=== PATIENT | female | born 1965 | race Caucasian/White ===

== ENCOUNTER 2017-01-08 15:19 | Emergency (ER) | payer OTHER ==
--- NOTE | ~2017-01-08 | US85 ---
[facility] RADIOLOGY TEXT RESULTS PATIENT: ARABELLA DELA CRUZ LOCATION: SED : 69 UNIT #: [id number] AGE: [address]: Joseline Gold MD SEX: F ORDER DR: [id number] [address] [address] [id number] E MR#: [id number] Acc #: [id number] NAME: ARABELLA DELA CRUZ : 1965 SEX: F STUDY DATE/TIME: 01/08/2017 16:18 UNIT: SED ROOM: STUDY DESCRIPTION: [facility] or [facility] Attending Physician: Joseline Gold M.D. Ordering Physician: Physician Non-Staff Primary Care Physician: Pia Chan M.D. MEDICAL IMAGING REPORT This report is preliminary unless electronic signature is present. EXAM Right lower extremity venous duplex 01/08/2017 HISTORY Right lower extremity pain and swelling from right buttock to right ankle with right calf swelling for 3 days. Evaluate for deep vein thrombosis. TECHNIQUE Venous ultrasound examination of the right lower extremity was performed using grayscale, spectral Doppler and color flow Doppler imaging. FINDINGS The examination is negative. There is no evidence of right lower extremity deep venous thrombus from the groin to the lower calf. Visualized greater saphenous vein is also patent. IMPRESSION Negative examination. No evidence of right lower extremity deep venous thrombosis. Dictated by... David Duval M.D. THIS IS AN ELECTRONICALLY VERIFIED REPORT David Duval M.D. at 01/09/2017 7:46 AM TOÑITO/harjeet TD: 01/08/2017 20:48 JOB #: [id number] [facility]ICAL [facility]AGING [facility] RADIOLOGY TEXT RESULTS PATIENT: ARABELLA DELA CRUZ LOCATION: SED : 69 UNIT #: [id number] AGE: [address]: Joseline Gold MD SEX: F ORDER DR: Page 1 of 1
[~2017-01-08 15:19] MED LIST: ALLEGRA PO; BENTYL10 MG DOB; CENTRUM PO; K-TAB ER20 MEQ PO; KEFLEX PO; KLONOPIN PO; LEXAPRO PO; NEXIUM PO; OMEPRAZOLE40 M1 PO; PREDNISONE PO; SEROQUEL XR150 MG PO; SUDAFED; TOPROL XL PO; VALTREX PO; VERAMYST10 GM; VICODIN 5/500 T1 TAB PO; ZOLOFT50 MG PO; ZOVIRAX400 MG PO
[2017-01-08 15:34] LABS: BASOPHIL# 0.1 X10e3 (0-0.3); BASOPHIL% 0.7 % (0-2.5); EOSINOPHIL# 0.1 X10e3 (0-0.7); EOSINOPHIL% 0.6 % (0.0-7.0); HEMATOCRIT 35.6 % (35.0-45.0); HEMOGLOBIN 12.2 gm/dL (12.0-16.0); LYMPHOCYTE# 1.6 X10e3 (1.0-3.5); LYMPHOCYTE% 17.9 % (17.0-45.0); MEAN CELL VOLUME 104.1 FL (83-96); MEAN CORPUSCULAR HEMOGLOBIN 35.6 PG (28-34); MEAN CORPUSCULAR HGB CONC 34.2 g/dL (30-36); MEAN PLATELET VOLUME 8.2 FL (6.5-11.5); MONOCYTE# 0.9 X10e3 (0-1.0); MONOCYTE% 9.7 % (3.0-12.0); NEUTROPHIL# 6.5 X10e3 (1.5-7.1); NEUTROPHIL% 71.1 % (40-75); PLATELET COUNT 344 X10e3 (140-420); RED BLOOD COUNT 3.42 X10e (3.90-5.30); RED CELL DISTRIBUTION WIDTH 15.6 % (11.0-15.5); WHITE BLOOD COUNT 9.2 X10e3 (4.0-10.5)
[2017-01-08 16:01] LABS: DIFF IND NO
[2017-01-08 16:07] LABS: INR 1.2; PROTHROMBIN TIME (PATIENT) 13.5 SECONDS (9.5-12.4)
[2017-01-08 16:11] LABS: CALCIUM SERUM 7.9 mg/dL (8.4-10.2); CARBON DIOXIDE 22 mmol/L (22-31); CHLORIDE 100 mmol/L (100-111); CREATININE SERUM 0.6 mg/dL (0.6-1.4); GLUCOSE FASTING 134 mg/dL (70-110); SODIUM 135 mmol/L (135-145)
[2017-01-08 16:15] LABS: BLOOD UREA NITROGEN <5 mg/dL (9-23); BUN/CREATININE RATIO 8.33; POTASSIUM 2.4 mmol/L (3.5-5.1)
[2017-01-08] MEDS ORDERED: ZESTRIL40 MG PO (16:16)
[2017-01-08 18:40] LABS: BLOOD UREA NITROGEN <5 mg/dL (9-23); BUN/CREATININE RATIO 7.14; CALCIUM SERUM 8.3 mg/dL (8.4-10.2); CARBON DIOXIDE 26 mmol/L (22-31); CHLORIDE 102 mmol/L (100-111); CREATININE SERUM 0.7 mg/dL (0.6-1.4); GLOM FILT RATE Estimated 101.7 mL/min (>60); GLUCOSE FASTING 97 mg/dL (70-110); SODIUM 139 mmol/L (135-145)
[2017-01-08 18:42] LABS: POTASSIUM 2.9 mmol/L (3.5-5.1)
[2017-01-17] MEDS ORDERED: CARAFATE (08:43)
[2017-01-17] MEDS ORDERED: BUTALB-ACETAMI1 EAC2 (08:43)
[2017-01-17] MEDS ORDERED: PROTONIX (08:43)
== END 2017-01-08 19:06 | disposition home or self-care (01) ==
LOC: SED 15:19
PROVIDERS: Emergency Medicine
DX: R60.0 Localized edema (principal); E87.6 Hypokalemia; I10 Essential (primary) hypertension; F41.9 Anxiety disorder, unspecified; F17.200 Nicotine dependence, unspecified, uncomplicated; Z88.2 Allergy status to sulfonamides
CPT/HCPCS: 36415; 80048; 85025; 85610; 93971; 99284

== ENCOUNTER → 2017-01-10 | Outpatient (CLI) | payer OTHER ==
[~2017-01-10] MED LIST changes: +BUTALB-ACETAMI1 EAC2; +CARAFATE; +PROTONIX; +ZESTRIL40 MG PO
[2017-01-10 09:39] LABS: CALCIUM SERUM 8.4 mg/dL (8.4-10.2); CARBON DIOXIDE 27 mmol/L (22-31); CHLORIDE 101 mmol/L (100-111); CREATININE SERUM 0.7 mg/dL (0.6-1.4); GLOM FILT RATE Estimated 101.7 mL/min (>60); GLUCOSE FASTING 147 mg/dL (70-110); POTASSIUM 3.2 mmol/L (3.5-5.1); SODIUM 141 mmol/L (135-145)
[2017-01-10 09:40] LABS: BLOOD UREA NITROGEN <5 mg/dL (9-23); BUN/CREATININE RATIO 7.14
== END | disposition home or self-care (01) ==
LOC: SNIV 09:00
PROVIDERS: Emergency Medicine
DX: E87.6 Hypokalemia (principal)
CPT/HCPCS: 36415; 80048

== ENCOUNTER 2017-01-17 08:50 | Emergency (ER) | payer OTHER ==
--- NOTE | ~2017-01-17 | CT2 ---
[facility] A Service of [facility] RADIOLOGY TEXT RESULTS PATIENT: ARABELLA DELA CRUZ LOCATION: SED : [birth year] UNIT #: [id number] AGE: [address]: Morgan Harrison MD SEX: F ORDER DR: [id number] [place] [id number] E MR#: [id number] Acc #: [id number] NAME: ARABELLA DELA CRUZ : 1965 SEX: F STUDY DATE/TIME: 01/17/2017 9:44 UNIT: SED ROOM: STUDY DESCRIPTION: CT Abd and Pelv W Cont Attending Physician: Morgan Harrison M.D. Ordering Physician: Morgan Harrison M.D. Primary Care Physician: Pia Chan M.D. MEDICAL IMAGING REPORT This report is preliminary unless electronic signature is present. EXAM CT abdomen and pelvis with contrast INDICATION Elevated liver enzyme levels and upper abdominal pain for the past 2 days. PROCEDURE Contrast-enhanced CT of the abdomen and pelvis. This CT exam was performed with one or more of the following radiation dose reduction techniques: automatic exposure control, adjustment of mA and/or kV according to patient size, and iterative reconstruction. COMPARISON 11/12/2014 FINDINGS ABDOMEN WITH CONTRAST: Included lung bases are clear. Liver enlarged measuring 22.5 cm. There is severe diffuse hepatic steatosis. Redemonstration of a few small probable hemangiomas in the liver. These are unchanged from the previous study. The spleen, kidneys, adrenal glands, pancreas, gallbladder unremarkable. Bowel loops are nondilated. There is thickening of the sigmoid colon and rectum. There are diverticula in the sigmoid segment. PELVIS WITH CONTRAST: No pelvic masses. No aggressive appearing bone lesion. IMPRESSION 1. Hepatomegaly with significant steatosis, new compared with the [facility] A Service [facility] RADIOLOGY TEXT RESULTS PATIENT: ARABELLA DELA CRUZ LOCATION: SED : 69 UNIT #: [id number] AGE: [address]: Morgan Harrison MD SEX: F ORDER DR: previous study. 2. Thickening of the sigmoid colon and rectum could represent proctocolitis. Correlate with patient's current symptoms. 3. There are a few diverticula seen in the sigmoid segment. Dictated by... Chris Saeed M.D. THIS IS AN ELECTRONICALLY VERIFIED REPORT Chris Saeed M.D. at 01/18/2017 6:50 AM YOLI/isaac TD: 01/17/2017 12:05 JOB #: [id number] MEDICAL IMAGING REPORT Page 1 of 1
--- NOTE | ~2017-01-17 | CR72 ---
[facility] A Service of [facility] RADIOLOGY TEXT RESULTS PATIENT: ARABELLA DELA CRUZ LOCATION: SED : 69 UNIT #: [id number] AGE: [address]: Morgan Harrison MD SEX: F ORDER DR: [id number] [place] [id number] E MR#: [id number] Acc #: [id number] NAME: ARABELLA DELA CRUZ : 1965 SEX: F STUDY DATE/TIME: 01/17/2017 9:18 UNIT: SED ROOM: STUDY DESCRIPTION: CR Chest Single View Portable Attending Physician: Morgan Harrison M.D. Ordering Physician: Morgan Harrison M.D. Primary Care Physician: Pia Chan M.D. MEDICAL IMAGING REPORT This report is preliminary unless electronic signature is present. EXAM AP portable chest date 01/17/2017 at 0918 HISTORY Shortness breath and chest pain for 1 month. Worse for the past 2 days. Chest tightness. Leg weakness. Anxiety. Additional history of smoking and hypertension. COMPARISON PA and lateral chest 02/24/2010. FINDINGS A single AP portable view of the chest shows both lungs to be clear. The heart is normal in size. The mediastinal contour is normal. No significant bone abnormalities are seen. IMPRESSION Normal portable chest. Dictated by... Sveta Herrera M.D. THIS IS AN ELECTRONICALLY VERIFIED REPORT Sveta Herrera M.D. at 01/18/2017 7:03 AM Santos/dev TD: 01/17/2017 12:45 JOB #: [id number] MEDICAL IMAGING REPORT Page 1 of 1
[2017-01-17 09:06] LABS: BASOPHIL# 0.1 X10e3 (0-0.3); BASOPHIL% 0.9 % (0-2.5); EOSINOPHIL# 0.1 X10e3 (0-0.7); EOSINOPHIL% 1.4 % (0.0-7.0); LYMPHOCYTE# 1.6 X10e3 (1.0-3.5); LYMPHOCYTE% 21.9 % (17.0-45.0); MEAN CORPUSCULAR HEMOGLOBIN 35.3 PG (28-34); MEAN CORPUSCULAR HGB CONC 33.3 g/dL (30-36); MEAN PLATELET VOLUME 9.1 FL (6.5-11.5); MONOCYTE# 0.8 X10e3 (0-1.0); MONOCYTE% 10.3 % (3.0-12.0); NEUTROPHIL# 4.9 X10e3 (1.5-7.1); NEUTROPHIL% 65.5 % (40-75); PLATELET COUNT 237 X10e3 (140-420); RED BLOOD COUNT 3.96 X10e (3.90-5.30); RED CELL DISTRIBUTION WIDTH 14.7 % (11.0-15.5); WHITE BLOOD COUNT 7.5 X10e3 (4.0-10.5)
[2017-01-17 09:14] LABS: DIFF IND NO
[2017-01-17 09:25] LABS: URINE SOURCE CLEAN CATCH
[2017-01-17 09:28] LABS: URINE APPEARANCE HAZY; URINE BLOOD NEG (NEG); URINE COLOR AMBER; URINE GLUCOSE NEG (NORM); URINE KETONE 1+ (NEG); URINE LEUKOCYTE ESTERASE NEG (NEG); URINE NITRATE NEG (NEG); URINE PH 6.5 (5-8); URINE PROTEIN 2+ (NEG)
[2017-01-17 09:29] LABS: POC - CKMB 2.5 ng/mL (0.0-7.9); POC - TROPONIN <0.05 ng/mL (<=0.05)
[2017-01-17 09:30] LABS: MICRO INDICATED? YES; URINE BILIRUBIN POS (NEG)
[2017-01-17 09:30] LABS: ALBUMIN SERUM 3.2 g/dL (3.5-5.0); BILIRUBIN, DIRECT 0.9 mg/dL (0.0-0.2); BILIRUBIN,TOTAL 1.9 mg/dL (0.2-2.0); BUN/CREATININE RATIO 6.25; CALCIUM SERUM 8.4 mg/dL (8.4-10.2); CREATININE SERUM 0.8 mg/dL (0.6-1.4); GLOM FILT RATE Estimated 86.6 mL/min (>60); PROTEIN TOTAL SERUM 6.8 g/dL (6.0-8.3)
[2017-01-17 09:31] LABS: POTASSIUM 2.8 mmol/L (3.5-5.1)
[2017-01-17 09:39] LABS: URINE WBC 25-50 /[HPF] (0-5)
[2017-01-17 09:40] LABS: URINE BACTERIA 3+ (NEG); URINE MUCUS PRESENT; URINE SQUAMOUS EPITHELIAL CELL MODERATE /[HPF]
== END 2017-01-17 13:26 | disposition home or self-care (01) ==
LOC: SED 08:50
PROVIDERS: Emergency Medicine
DX: E87.6 Hypokalemia (principal); K52.9 Noninfective gastroenteritis and colitis, unspecified; N39.0 Urinary tract infection, site not specified; R06.02 Shortness of breath; K21.9 Gastro-esophageal reflux disease without esophagitis; I10 Essential (primary) hypertension; F17.200 Nicotine dependence, unspecified, uncomplicated; Z90.49 Acquired absence of other specified parts of digestive tract; Z98.51 Tubal ligation status; Z98.890 Other specified postprocedural states
CPT/HCPCS: 36415; 71010; 74177; 80048; 80076; 81003; 82553; 84484; 84703; 85025; 96361; 96365; 96366; 96367; 96375; 99284; J1885; J1956; J2765; Q9967

== ENCOUNTER → 2017-02-06 | Outpatient (CLI) | payer OTHER ==
--- NOTE | ~2017-02-06 | NM22 ---
[facility] A Service of [facility] RADIOLOGY TEXT RESULTS PATIENT: ARABELLA DELA CRUZ LOCATION: CNUC : [birth year] UNIT #: [id number] AGE: [address]: JOSUE DENG APRN SEX: F ORDER DR: [id number] [facility] [address] [facility]. [place], [place] [address] [id number] O MR#: [id number] Acc #: [id number] NAME: ARABELLA DELA CRUZ : 1965 SEX: F STUDY DATE/TIME: 02/06/2017 8:41 UNIT: CNUC ROOM: STUDY DESCRIPTION: JERSON Hepatobiliary W GB Pharm Attending Physician: Josue Deng Aprn Referring Physician: Josue Deng Aprn Ordering Physician: Josue Deng Aprn Primary Care Physician: Pia Chan M.D. MEDICAL IMAGING REPORT This report is preliminary unless electronic signature is present EXAM Hepatobiliary scan. INDICATION Right upper quadrant abdominal pain for the past 6 months. PROCEDURE Patient administered 4.9 mCi technetium labeled Choletec. Imaging of the upper abdomen was performed for 60 minutes, then patient was administered 1.4 mcg of Kinevac IV per protocol. COMPARISON CT from 01/17/2017. FINDINGS Liver shows symmetric extraction and excretion of radiotracer. Gallbladder fills by 15 minutes. Ejection fraction is 93.8% at 30 minutes. IMPRESSION Normal Dictated by... Chris Saeed M.D. THIS IS AN ELECTRONICALLY VERIFIED REPORT Chris Saeed M.D. at 02/06/2017 3:55 PM EED/talibw TD: 02/06/2017 11:33 JOB #: [id number] [facility] A Service [facility] RADIOLOGY TEXT RESULTS PATIENT: ARABELLA DELA CRUZ LOCATION: CNUC : [birth year] UNIT #: [id number] AGE: [address]: JOSUE DENG APRN SEX: F ORDER DR: MEDICAL IMAGING REPORT Page 1 of 1 COPY
== END | disposition home or self-care (01) ==
LOC: CNUC 08:02
DX: R10.13 Epigastric pain (principal); R10.11 Right upper quadrant pain
CPT/HCPCS: 78227; A9537; J2805